=== PATIENT | female | born 1950 | race Two or more races ===

== ENCOUNTER 2025-04-07 11:38 | Inpatient (IN) | payer OTHER ==
[~2025-04-07] VITALS: Ht 165.1 cm; Wt 81.6 kg
[2025-04-07] MEDS ORDERED: METFORMIN HCL500 MG (11:41)
[2025-04-07] MEDS ORDERED: GLIMEPIRIDE1 M1 (11:42)
[2025-04-07] MEDS ORDERED: LANTUS SOL100 UNIT/1 (11:42)
--- NOTE | 2025-04-07 11:42 | NUR ---
PTE DE AMBULACIA ACOMPANADA POR CUIDADORA QUIEN INDICA DEHYDRATACION MAS QUE NO ELIZABETH COMIDO EN 5 LUNDY, SE NICOLASA SV Y SE UBICA EN K6.
[2025-04-07] MEDS ORDERED: 0.9 % SODIUM CHLORIDE 1,000 ML IV SCH ×3 (13:15→20:15)
--- NOTE | 2025-04-07 14:16 | NUR ---
DUDLEY TENORIO ORIENTA SOBRE TRATAMIENTO MEDICO. SE CANALIZA VENA Y SE NICOLASA MUESTRAS DE LAB. SE COMIENZA TRATAMIENTO IV
[2025-04-07 14:17] LABS: BASO % 0.4 % (0.1-1.2); EOS # 0.02 (0.04-0.54); EOS % 0.1 % (0.7-7.0); HEMATOCRIT 42.1 % (34.1-44.9); HEMOGLOBIN 13.2 g/dL (11.2-15.7); LYMPH # 1.48 (1.18-3.74); LYMPH % 10.4 % (19.3-53.1); MEAN CORPUSCULAR HEMOGLOBIN 26.3 pg (25.6-32.2); MONO # 0.94 (0.24-0.82); MONO % 6.6 % (4.7-12.5); NEUT # 11.62 (1.56-6.13); PLATELET COUNT 362 K/uL (163-369); RED BLOOD COUNT 5.01 M/uL (3.93-5.22); RED CELL DISTRIBUTION WIDTH 14.1 % (11.6-14.4)
[2025-04-07 14:37] LABS: COVID-19 AG NEGATIVE (NEGATIVE)
[2025-04-07 14:45] LABS: ALBUMIN 2.3 gm/dL (3.4-5.0); BILIRUBIN TOTAL 0.54 mg/dL (0.3-1.2); CREATININE SERUM 0.6 mg/dL (0.55-1.02); GFR 97.46; GLOBULINA 5.1 G/DL (2.4-3.5); POTASSIUM 3.16 mEq/L (3.5-5.1); TOTAL PROTEIN 7.4 gm/dL (6.4-8.2)
[2025-04-07 14:49] LABS: CALCIUM 13.7 mg/dL (8.5-10.1)
[2025-04-07 14:56] LABS: INFLUENZA A AG NEGATIVE (NEGATIVE); INFLUENZA B AG NEGATIVE (NEGATIVE)
[2025-04-07] MEDS ORDERED: METHYLPREDNISOLONE SOD SUCC 40 MG VIAL IV SCH (20:12)
[2025-04-07] MEDS ORDERED: FAMOTIDINE/PF 20 MG in 0.9 % SODIUM CHLORIDE 8 ML IV PUSH SCH (20:14)
[2025-04-07] MEDS ORDERED: DEXTROSE 50 % IN WATER 0.5 G/ML VIAL IV PRN (20:15)
[2025-04-07] MEDS ORDERED: ACETAMINOPHEN 500 MG GEL..CAP PO PRN (20:15)
[2025-04-07] MEDS ORDERED: INSULIN LISPRO 1,000 UNIT/10 ML UNITS SUBCUTANEO PRN (20:15)
[2025-04-07] MEDS ORDERED: ENOXAPARIN SODIUM 40 MG/0.4 ML SYRINGE SUBCUTANEO SCH (20:21)
[2025-04-07] MEDS ORDERED: POTASSIUM CHLORIDE IN WATER 100 ML IV SCH (21:00)
[2025-04-07] MEDS ORDERED: CIPROFLOXACIN IN 5 % DEXTROSE 200 ML IV SCH (21:00)
[2025-04-08 00:33] LABS: INR 1.22; PROTHROMBIN TIME 13.1 SECONDS (9.0-11.5)
[2025-04-08 01:59] VITALS: BP 100/60
[2025-04-08 08:36] LABS: BILIRUBIN TOTAL 0.46 mg/dL (0.3-1.2); CHOL HDL RATIO 2.6 (0-5.0); CREATININE SERUM 0.47 mg/dL (0.55-1.02); GFR 129.18; GLOBULINA 4.1 G/DL (2.4-3.5); POTASSIUM 3.13 mEq/L (3.5-5.1); TOTAL PROTEIN 6.1 gm/dL (6.4-8.2); TSH 0.843 uIU/mL (0.358-3.74)
[2025-04-08 09:03] VITALS: BP 158/82
[2025-04-08] MEDS ORDERED: ZOLEDRONIC ACID 4MG/5ML VIAL IV STA (09:22)
[2025-04-08] MEDS ORDERED: CALCITONIN,SALMON,SYNTHETIC 400 UNIT/2ML VIAL SUBCUTANEO STA (09:23)
[2025-04-08] MEDS ORDERED: FUROsemide 20 MG/2 ML VIAL IV NR (10:00)
[2025-04-08 11:45] LABS: URINE APPEARANCE Clear; URINE BILIRRUBIN Negative (NEGATIVE); URINE COLOR Yellow; URINE GLUCOSE Negative (NEGATIVE); URINE KETONE Negative (NEGATIVE); URINE LEUKOCYTE Negative; URINE NITRATE Negative; URINE PROTEIN Negative (NEGATIVE); URINE UROBILINOGEN 0.2 E.U./dl
[2025-04-08 11:49] LABS: URINE BACTERIA 214.1 uL (0.0-1933); URINE RBC 20.9 uL (0.0-20.8); URINE WBC 5.5 uL (0.0-23.2)
[2025-04-08 11:53] LABS: URINE BLOOD TRACE; URINE CAST 0.73 uL (0.0-1.40); URINE EPITHELIAL CELLS 1.2 uL (0.0-38.8)
[2025-04-08 17:00] VITALS: BP 165/80; O2SAT 100
[2025-04-09 01:52] VITALS: BP 137/62; O2SAT 98
[2025-04-09] MEDS ORDERED: FUROsemide 20 MG/2 ML VIAL IV SCH (09:00)
[2025-04-09 09:12] VITALS: BP 162/68; O2SAT 96
[2025-04-09] MEDS ORDERED: PANTOPRAZOLE SODIUM 40 MG/VIAL VIAL IV PUSH SCH (10:35)
[2025-04-09] MEDS ORDERED: 0.9 % SODIUM CHLORIDE 1,000 ML IV SCH (10:45)
[2025-04-09 13:57] LABS: CALCIUM 11.5 mg/dL (8.5-10.1); CREATININE SERUM 0.42 mg/dL (0.55-1.02); GFR 147.08; MAGNESIUM 1.5 mg/dL (1.8-2.4); PHOSPHOROUS 2.3 mg/dL (2.5-4.9)
[2025-04-09 14:08] LABS: POTASSIUM 2.98 mEq/L (3.5-5.1)
[2025-04-09 16:53] VITALS: BP 144/76; O2SAT 95
[2025-04-10 00:57] VITALS: BP 135/75
[2025-04-10] MEDS ORDERED: MAGNESIUM SULFATE IN WATER 50 ML IV ONE (08:15)
[2025-04-10] MEDS ORDERED: POTASSIUM PHOS,M-BASIC-D-BASIC 18 MM in 0.9 % SODIUM CHLORIDE 250 ML IV SCH (09:00)
[2025-04-10] MEDS ORDERED: ZOLEDRONIC ACID 4MG/5ML VIAL IV ONE (09:00)
[2025-04-10 09:16] VITALS: BP 156/67; O2SAT 95
[2025-04-10] MEDS ORDERED: MAGNESIUM SULFATE IN WATER 50 ML IV STA (14:49)
[2025-04-10 15:21] LABS: ALBUMIN 2.3 gm/dL (3.4-5.0); BILIRUBIN TOTAL 0.56 mg/dL (0.3-1.2); CALCIUM 11.4 mg/dL (8.5-10.1); CREATININE SERUM 0.54 mg/dL (0.55-1.02); GFR 110.06; GLOBULINA 4.5 G/DL (2.4-3.5); TOTAL PROTEIN 6.8 gm/dL (6.4-8.2)
[2025-04-10 15:23] LABS: POTASSIUM 2.86 mEq/L (3.5-5.1)
[2025-04-10] MEDS ORDERED: POTASSIUM CHLORIDE IN WATER 40 MEQ/100 ML PIGGYBAG IV SCH (17:00)
[2025-04-10 18:27] VITALS: BP 131/71; O2SAT 97
[2025-04-11 02:02] VITALS: BP 131/72; O2SAT 95
[2025-04-11 08:58] VITALS: BP 150/60; O2SAT 97
[2025-04-11] MEDS ORDERED: METRONIDAZOLE/SODIUM CHLORIDE 100 ML IV SCH (13:00)
[2025-04-11] MEDS ORDERED: LIDOCAINE HCL 1% 10ML VIAL IJ NR (19:00)
[2025-04-12 02:05] VITALS: BP 137/84; O2SAT 93
[2025-04-12 08:43] VITALS: BP 110/49; O2SAT 96
[2025-04-12] MEDS ORDERED: INSULIN NPH HUMAN ISOPHANE 1,000 UNITS/10 ML UNITS SUBCUTANEO SCH (09:00)
[2025-04-12 13:19] LABS: BASO % 0.3 % (0.1-1.2); EOS # 0.02 (0.04-0.54); EOS % 0.3 % (0.7-7.0); HEMATOCRIT 31.8 % (34.1-44.9); LYMPH # 1.11 (1.18-3.74); LYMPH % 14.5 % (19.3-53.1); MEAN CORPUSCULAR HEMOGLOBIN 26.8 pg (25.6-32.2); MONO # 0.46 (0.24-0.82); NEUT % 78.1 % (34.0-71.1); PLATELET COUNT 202 K/uL (163-369); RED BLOOD COUNT 3.73 M/uL (3.93-5.22); RED CELL DISTRIBUTION WIDTH 14.5 % (11.6-14.4)
[2025-04-12 14:15] LABS: ALBUMIN 1.8 gm/dL (3.4-5.0); BILIRUBIN TOTAL 0.38 mg/dL (0.3-1.2); CALCIUM 8.3 mg/dL (8.5-10.1); CREATININE SERUM 0.42 mg/dL (0.55-1.02); GFR 147.08; GLOBULINA 3.9 G/DL (2.4-3.5); POTASSIUM 3.22 mEq/L (3.5-5.1); TOTAL PROTEIN 5.7 gm/dL (6.4-8.2)
[2025-04-12 15:22] LABS: BASO % 0.2 % (0.1-1.2); EOS # 0.05 (0.04-0.54); EOS % 0.5 % (0.7-7.0); HEMATOCRIT 32.4 % (34.1-44.9); HEMOGLOBIN 10.4 g/dL (11.2-15.7); LYMPH # 1.27 (1.18-3.74); LYMPH % 13.6 % (19.3-53.1); MEAN CORPUSCULAR HEMOGLOBIN 27.3 pg (25.6-32.2); MONO # 0.61 (0.24-0.82); MONO % 6.5 % (4.7-12.5); NEUT # 7.33 (1.56-6.13); NEUT % 78.5 % (34.0-71.1); PLATELET COUNT 227 K/uL (163-369); RED BLOOD COUNT 3.81 M/uL (3.93-5.22); RED CELL DISTRIBUTION WIDTH 14.6 % (11.6-14.4)
[2025-04-12 15:49] LABS: BILIRUBIN TOTAL 0.43 mg/dL (0.3-1.2); CREATININE SERUM 0.45 mg/dL (0.55-1.02); GFR 135.83; GLOBULINA 3.8 G/DL (2.4-3.5); MAGNESIUM 1.6 mg/dL (1.8-2.4); TOTAL PROTEIN 5.8 gm/dL (6.4-8.2)
[2025-04-12 16:09] LABS: PHOSPHOROUS 1.1 mg/dL (2.5-4.9)
[2025-04-12 16:14] VITALS: BP 131/82; O2SAT 100
[2025-04-12] MEDS ORDERED: POTASSIUM PHOS,M-BASIC-D-BASIC 18 MM in 0.9 % SODIUM CHLORIDE 250 ML IV SCH (21:00)
[2025-04-13] MEDS ORDERED: POTASSIUM CHLORIDE IN WATER 40 MEQ/100 ML PIGGYBAG IV SCH (01:00)
[2025-04-13 02:10] VITALS: BP 150/82; O2SAT 95
[2025-04-13 08:26] VITALS: BP 136/80; O2SAT 96
[2025-04-13 11:12] LABS: CA 125 17.5 U/mL (0.0-38.1); CA 15-3 44.3 U/mL (0.0-25.0)
[2025-04-13 17:50] VITALS: BP 117/69; O2SAT 97
[2025-04-13] MEDS ORDERED: POTASSIUM CHLORIDE IN WATER 40 MEQ/100 ML PIGGYBAG IV ONE (18:39)
[2025-04-14 02:01] VITALS: BP 126/76; O2SAT 98
[2025-04-14 09:30] VITALS: BP 123/74; O2SAT 95
[2025-04-14 17:30] VITALS: BP 95/62
[2025-04-15 02:44] VITALS: BP 127/69; O2SAT 99
[2025-04-15 08:37] LABS: BASO % 0.3 % (0.1-1.2); EOS # 0.11 (0.04-0.54); EOS % 1.4 % (0.7-7.0); HEMATOCRIT 29.6 % (34.1-44.9); HEMOGLOBIN 9.4 g/dL (11.2-15.7); LYMPH # 1.35 (1.18-3.74); LYMPH % 16.9 % (19.3-53.1); MEAN CORPUSCULAR HEMOGLOBIN 26.9 pg (25.6-32.2); MONO # 0.58 (0.24-0.82); MONO % 7.3 % (4.7-12.5); NEUT # 5.84 (1.56-6.13); PLATELET COUNT 184 K/uL (163-369); RED BLOOD COUNT 3.49 M/uL (3.93-5.22)
[2025-04-15 08:56] LABS: ALBUMIN 1.7 gm/dL (3.4-5.0); CREATININE SERUM 0.48 mg/dL (0.55-1.02); GFR 126.08; POTASSIUM 3.75 mEq/L (3.5-5.1)
[2025-04-15 09:17] VITALS: BP 123/70; O2SAT 98
[2025-04-15 10:21] LABS: CALCIUM 6.2 mg/dL (8.5-10.1)
[2025-04-15] MEDS ORDERED: POTASSIUM PHOS,M-BASIC-D-BASIC 3 MM/ML VIAL IV NR (15:15)
[2025-04-15] MEDS ORDERED: PREDNISOLONE 15 MG/5 ML ML PO SCH (17:50)
[2025-04-15] MEDS ORDERED: AMINO ACIDS/PROTEIN HYDROLYS 30 ML BLIST.PACK NGT SCH (17:58)
[2025-04-15 18:20] VITALS: BP 120/81
[2025-04-16 00:52] VITALS: BP 108/70; O2SAT 96
[2025-04-16 09:18] VITALS: BP 132/72; O2SAT 97
[2025-04-16] MEDS ORDERED: DEXTROSE 5 %-0.45 % SOD CHLORD 1,000 ML IV SCH (09:45)
[2025-04-16] MEDS ORDERED: POTASSIUM PHOS,M-BASIC-D-BASIC 18 MM in 0.9 % SODIUM CHLORIDE 250 ML IV SCH (12:00)
[2025-04-16 17:08] LABS: a:g ratio 0.6 (0.7-1.7); alpha 1 g 0.3 g/dL (0.0-0.4); alpha 2 0.8 g/dL (0.4-1.0); beta g 1.1 g/dL (0.7-1.3); gamma g 1.2 g/dL (0.4-1.8); globulin t 3.4 g/dL (2.2-3.9); prot total 5.6 g/dL (6.0-8.5)
[2025-04-16 18:32] VITALS: BP 120/78
[2025-04-16] MEDS ORDERED: SODIUM CHLORIDE 0.45 % 1,000 ML IV SCH (23:00)
[2025-04-17 01:30] VITALS: BP 121/73; O2SAT 96
[2025-04-17] MEDS ORDERED: INSULIN NPH HUMAN ISOPHANE 1,000 UNITS/10 ML UNITS SUBCUTANEO SCH (09:00)
[2025-04-17 09:30] VITALS: BP 130/72; O2SAT 96
[2025-04-17 13:02] LABS: CREATININE SERUM 0.53 mg/dL (0.55-1.02); GFR 112.46; MAGNESIUM 1.7 mg/dL (1.8-2.4); POTASSIUM 4.92 mEq/L (3.5-5.1)
[2025-04-17 13:09] LABS: CALCIUM 6.1 mg/dL (8.5-10.1)
[2025-04-17 13:10] LABS: PHOSPHOROUS 1.9 mg/dL (2.5-4.9)
[2025-04-17 17:12] VITALS: BP 123/60; O2SAT 97
[2025-04-18 02:54] VITALS: BP 113/66; O2SAT 95
[2025-04-18 08:10] VITALS: BP 130/74
[2025-04-18] MEDS ORDERED: MAGNESIUM SULFATE IN WATER 50 ML IV SCH (09:00)
[2025-04-18] MEDS ORDERED: POTASSIUM PHOS,M-BASIC-D-BASIC 18 MM in 0.9 % SODIUM CHLORIDE 250 ML IV NR (10:30)
[2025-04-18] MEDS ORDERED: INSULIN NPH HUMAN ISOPHANE 1,000 UNITS/10 ML UNITS SUBCUTANEO SCH (17:00)
[2025-04-18 17:01] VITALS: BP 126/69; O2SAT 99
[2025-04-19 02:24] VITALS: BP 130/76; O2SAT 95
[2025-04-19 08:42] VITALS: BP 128/78
[2025-04-19 20:52] VITALS: BP 133/80; O2SAT 98
[2025-04-20 00:54] VITALS: BP 127/77; O2SAT 98
[2025-04-20 06:28] LABS: BASO % 0.3 % (0.1-1.2); EOS # 0.09 (0.04-0.54); EOS % 1.5 % (0.7-7.0); HEMATOCRIT 28.1 % (34.1-44.9); LYMPH # 0.96 (1.18-3.74); LYMPH % 15.7 % (19.3-53.1); MEAN CORPUSCULAR HEMOGLOBIN 27.6 pg (25.6-32.2); MONO # 0.46 (0.24-0.82); MONO % 7.5 % (4.7-12.5); NEUT # 4.55 (1.56-6.13); NEUT % 74.5 % (34.0-71.1); PLATELET COUNT 268 K/uL (163-369); RED BLOOD COUNT 3.26 M/uL (3.93-5.22); RED CELL DISTRIBUTION WIDTH 16.2 % (11.6-14.4)
[2025-04-20 07:28] LABS: CALCIUM 6.7 mg/dL (8.5-10.1); CREATININE SERUM 0.44 mg/dL (0.55-1.02); GFR 139.4; MAGNESIUM 2.4 mg/dL (1.8-2.4); POTASSIUM 4.8 mEq/L (3.5-5.1)
[2025-04-20 07:46] LABS: PHOSPHOROUS 1.7 mg/dL (2.5-4.9)
[2025-04-20 09:49] VITALS: BP 147/81
[2025-04-20] MEDS ORDERED: POTASSIUM PHOS,M-BASIC-D-BASIC 18 MM in 0.9 % SODIUM CHLORIDE 250 ML IV NR (10:00)
[2025-04-20 18:33] VITALS: BP 123/73; O2SAT 98
[2025-04-20] MEDS ORDERED: POTASSIUM PHOS,M-BASIC-D-BASIC 15 MM in 0.9 % SODIUM CHLORIDE 250 ML IV ONE (23:15)
[2025-04-21 01:18] VITALS: BP 146/73; O2SAT 96
[2025-04-21 08:07] LABS: ALBUMIN 1.7 gm/dL (3.4-5.0); CALCIUM 6.7 mg/dL (8.5-10.1); CREATININE SERUM 0.36 mg/dL (0.55-1.02); GFR 175.72; MAGNESIUM 1.8 mg/dL (1.8-2.4); PHOSPHOROUS 2.5 mg/dL (2.5-4.9); POTASSIUM 5.31 mEq/L (3.5-5.1)
[2025-04-21 08:53] LABS: URINE APPEARANCE Clear; URINE BILIRRUBIN Negative (NEGATIVE); URINE BLOOD Negative; URINE COLOR Yellow; URINE GLUCOSE Negative (NEGATIVE); URINE KETONE Negative (NEGATIVE); URINE LEUKOCYTE Negative; URINE NITRATE Negative; URINE PROTEIN Negative (NEGATIVE); URINE UROBILINOGEN 0.2 E.U./dl
[2025-04-21 08:57] LABS: URINE BACTERIA 9.7 uL (0.0-1933); URINE RBC 4.5 uL (0.0-20.8); URINE WBC 3.1 uL (0.0-23.2)
[2025-04-21] MEDS ORDERED: INSULIN NPH HUMAN ISOPHANE 1,000 UNITS/10 ML UNITS SUBCUTANEO SCH ×2 (09:00→17:00)
[2025-04-21 09:03] LABS: URINE CAST 0.29 uL (0.0-1.40); URINE EPITHELIAL CELLS 1.2 uL (0.0-38.8)
[2025-04-21 10:08] VITALS: BP 146/80; O2SAT 97
[2025-04-21 11:56] LABS: BASO % 0.3 % (0.1-1.2); EOS # 0.07 (0.04-0.54); EOS % 1.2 % (0.7-7.0); HEMATOCRIT 29.4 % (34.1-44.9); HEMOGLOBIN 9.3 g/dL (11.2-15.7); LYMPH # 1.21 (1.18-3.74); LYMPH % 20.5 % (19.3-53.1); MONO # 0.44 (0.24-0.82); MONO % 7.4 % (4.7-12.5); NEUT # 4.14 (1.56-6.13); NEUT % 70.1 % (34.0-71.1); PLATELET COUNT 262 K/uL (163-369); RED BLOOD COUNT 3.45 M/uL (3.93-5.22); RED CELL DISTRIBUTION WIDTH 16.3 % (11.6-14.4)
[2025-04-21 16:35] VITALS: BP 110/69; O2SAT 100
[2025-04-21] MEDS ORDERED: TRAMADOL HCL 50 MG TABLET PO SCH (21:14)
[2025-04-22 01:19] VITALS: BP 128/69; O2SAT 98
[2025-04-22 09:53] VITALS: BP 120/74; O2SAT 97
[2025-04-22 17:34] VITALS: BP 126/70; O2SAT 93
[2025-04-23 00:18] VITALS: BP 150/77; O2SAT 96
[2025-04-23 08:28] VITALS: BP 165/77
[2025-04-23 15:25] LABS: BASO % 0.7 % (0.1-1.2); EOS % 1.6 % (0.7-7.0); HEMOGLOBIN 9.4 g/dL (11.2-15.7); LYMPH % 22.8 % (19.3-53.1); MEAN CORPUSCULAR HEMOGLOBIN 27.2 pg (25.6-32.2); MONO # 0.52 (0.24-0.82); MONO % 8.5 % (4.7-12.5); NEUT # 4.04 (1.56-6.13); NEUT % 65.9 % (34.0-71.1); PLATELET COUNT 329 K/uL (163-369); RED BLOOD COUNT 3.46 M/uL (3.93-5.22); RED CELL DISTRIBUTION WIDTH 15.9 % (11.6-14.4)
[2025-04-23 15:49] LABS: ALBUMIN 1.9 gm/dL (3.4-5.0); CREATININE SERUM 0.35 mg/dL (0.55-1.02); GFR 181.53; MAGNESIUM 1.6 mg/dL (1.8-2.4); PHOSPHOROUS 2.5 mg/dL (2.5-4.9); POTASSIUM 4.42 mEq/L (3.5-5.1)
[2025-04-23 18:14] VITALS: BP 117/60
[2025-04-24 00:41] VITALS: BP 112/71; O2SAT 98
[2025-04-24] MEDS ORDERED: INSULIN LISPRO 1,000 UNIT/10 ML UNITS SUBCUTANEO SCH (08:00)
[2025-04-24] MEDS ORDERED: INSULIN NPH HUMAN ISOPHANE 1,000 UNITS/10 ML UNITS SUBCUTANEO SCH (08:00)
[2025-04-24 08:36] VITALS: BP 137/74; O2SAT 97
[2025-04-24] MEDS ORDERED: TRAMADOL HCL 50 MG TABLET PO SCH (13:00)
[2025-04-24 13:08] LABS: IMM A 450 mg/dL (64-422); IMM G 1398 mg/dL (586-1602); IMM M 74 mg/dL (26-217)
[2025-04-24 13:37] LABS: COVID-19 AG NEGATIVE (NEGATIVE)
[2025-04-24] MEDS ORDERED: METFORMIN HCL500 MG PO (14:09)
[2025-04-24] MEDS ORDERED: TRAMADOL HCL50 MG PO (14:09)
== END 2025-04-24 14:00 | disposition home or self-care (01) | DRG 872 ==
LOC: ER 11:38 → MEDJ 22:03
PROVIDERS: Emergency Medicine; General Practice; Internal Medicine; Internal Medicine Endocrinology, Diabetes & Metabolism; ADMIT Internal Medicine; ATTEND Internal Medicine
PROC: BW28ZZZ Computerized Tomography (CT Scan) of Head (ICD-10-PCS; principal; 2025-04-07)
PROC: BW21ZZZ Computerized Tomography (CT Scan) of Abdomen and Pelvis (ICD-10-PCS; 2025-04-09)
PROC: 02HV33Z Insertion of Infusion Device into Superior Vena Cava, Percutaneous Approach (ICD-10-PCS; 2025-04-11)
PROC: BW24ZZZ Computerized Tomography (CT Scan) of Chest and Abdomen (ICD-10-PCS; 2025-04-17)
PROC: BU46ZZZ Ultrasonography of Uterus (ICD-10-PCS; 2025-04-18)
PROC: BW3GZZZ Magnetic Resonance Imaging (MRI) of Pelvic Region (ICD-10-PCS; 2025-04-19)
DX: A41.9 Sepsis, unspecified organism (principal); N39.0 Urinary tract infection, site not specified; L97.319 Non-pressure chronic ulcer of right ankle with unspecified severity; R65.10 Systemic inflammatory response syndrome (SIRS) of non-infectious origin without acute organ dysfunction; E83.52 Hypercalcemia; E11.9 Type 2 diabetes mellitus without complications; Z79.4 Long term (current) use of insulin; L89.159 Pressure ulcer of sacral region, unspecified stage; C53.0 Malignant neoplasm of endocervix
CPT/HCPCS: 72198